=== PATIENT | male | born 1955 | race Caucasian/White ===

== ENCOUNTER 2023-07-30 07:07 | Inpatient (IN) | payer MEDICARE, OTHER ==
[~2023-07-30] VITALS: Ht 177.8 cm; Wt 84.8 kg
[2023-07-30 08:53] LABS: Basophils # (auto) 0 10 ^3/uL (0-0.2); Basophils % (auto) 0.1 % (0.0-2.0); Eosinophils # (auto) 0 10 ^3/uL (0-0.8); Eosinophils % (auto) 0.2 % (0.0-7.0); Hematocrit 45.4 % (41.0-53.0); Hemoglobin 15.5 g/dL (13.5-17.5); Lymphocytes # (auto) 1.1 10 ^3/uL (0.4-5.4); Lymphocytes % (auto) 18.5 % (10.0-50.0); Mean Corpuscular Hemoglobin 30.2 pg (28.0-32.0); Mean Corpuscular Volume 88.9 fL (80.0-100.0); Monocytes # (auto) 0.4 10 ^3/uL (0-1.3); Monocytes % (auto) 6.3 % (0.0-12.0); Neutrophils # (auto) 4.5 10 ^3/uL (1.6-8.6); Neutrophils % (auto) 74.9 % (37.0-80.0); Red Blood Cells 5.11 10^6/uL (4.5-5.90); Red Cell Distribution Width 13.6 % (11.8-14.3)
[2023-07-30 09:09] LABS: Alanine Aminotransferase 42 U/L (7-40); Albumin 4.4 g/dL (3.2-4.8); Alkaline Phosphatase 85 U/L (46-116); Anion Gap 5 (5-15); Aspartate Aminotransferase 28 U/L (13-40); BUN/Creatinine Ratio 13.4 (10.0-20.0); Blood Urea Nitrogen 13 mg/dL (9-23); Calcium 10.7 mg/dL (8.5-10.1); Carbon Dioxide 25 mmol/L (20-30); Chloride 107 mmol/L (98-107); Glucose 108 mg/dL (74-106); Magnesium 2.2 mg/dL (1.6-2.6); Potassium 4.6 mmol/L (3.5-5.1); Sodium 137 mmol/L (136-145)
[2023-07-30 09:10] LABS: Total Protein 8.1 g/dL (5.7-8.2)
[2023-07-30] MEDS: cloNIDine HCL 0.1 MG TAB PO ONE (09:15)
[2023-07-30] MEDS: ASPirin 81 mg TAB PO ONE (09:16)
[2023-07-30] MEDS: SODIUM CHLORIDE 0.9% 1,000 ML IV ONE (09:24)
[2023-07-30] MEDS: IOHEXOL 350 MG/ML 100ML IJ ONE (10:48)
[2023-07-30 11:18] LABS: Urine Bacteria None Seen /hpf (None Seen)
[2023-07-30 11:26] LABS: Urine Blood Negative /uL (Negative); Urine Clarity Turbid (Clear); Urine Color Yellow (Yellow); Urine Mucus FEW (None Seen); Urine Protein, UAD TRACE (Negative); Urine Specific Gravity 1.046 (1.001-1.035); Urine Urobilinogen Normal (Negative); Urine WBC 1 /hpf (0 - 3); Urine pH 6.5 (5.0-9.0)
[2023-07-30] MEDS: cefTRIAXone 1GM/50ML D5W 50 ML IV ONE (15:30)
[2023-07-30] MEDS ORDERED: ONDANSETRON HCL 4 MG/2 ML VIAL IV PRN (16:00)
[2023-07-30] MEDS ORDERED: MORPHINE SULFATE INJ 2 MG/ml SYRG IV PRN (16:00)
[2023-07-30] MEDS ORDERED: NITROGLYCERIN 0.4 MG SL TAB SL PRN (16:00)
[2023-07-30] MEDS ORDERED: DOCUSATE SOD 100 MG CAP PO PRN (16:00)
[2023-07-30] MEDS ORDERED: HYDROcodone-ACET 5/325MG TAB PO PRN (16:00)
[2023-07-30] MEDS ORDERED: hydrALAZINE HCL 20 MG/ML VL IV PRN ×2 (17:45→19:00)
[2023-07-30 18:21] VITALS: PULSE 84; RESP 24; O2SAT 92
[2023-07-30] MEDS: dilTIAZem 25 MG/5 ML VIAL IV ONE (18:42)
[2023-07-30] MEDS ORDERED: LOSA-534 PO (18:48)
[2023-07-30] MEDS ORDERED: GUAI200T6 PO (18:48)
[2023-07-30] MEDS ORDERED: TAMS1CAP25 PO (18:48)
[2023-07-30] MEDS ORDERED: CYCL-614 PO (18:48)
[2023-07-30] MEDS ORDERED: TADA5TAB11 PO (18:48)
[2023-07-30] MEDS ORDERED: MULT-1018 PO (18:48)
[2023-07-30] MEDS ORDERED: OLOD1AER2 IN (18:48)
[2023-07-30] MEDS ORDERED: LIDO5DIS21 TOP (18:48)
[2023-07-30] MEDS ORDERED: BUDE20SU (18:48)
[2023-07-30] MEDS ORDERED: ALBUAER3 IN (18:48)
[2023-07-30] MEDS: LISINOPRIL 20 MG TAB PO ONE (19:04)
[2023-07-30 19:11] VITALS: BP 108/70; PULSE 88; RESP 24; TEMP 97.5; O2SAT 92
[2023-07-30 19:24] VITALS: PULSE 97; RESP 24; RESP 27; O2SAT 94
[2023-07-30] MEDS: SODIUM CHLOR 0.9% PF (SALINE LOCK) 10ML VIAL/SYR IV SCH (22:33)
[2023-07-30] MEDS: LOSARTAN POTASSIUM 50 MG TAB PO SCH (22:34)
[2023-07-30 23:40] VITALS: BP 125/84; PULSE 103; RESP 21; TEMP 98.8; O2SAT 96
[2023-07-30 23:48] VITALS: BP 125/86; PULSE 103; RESP 21; TEMP 98.8; O2SAT 96
[2023-07-30 23:54] VITALS: PULSE 96; RESP 16; O2SAT 97
[2023-07-30] MEDS: IPRATROPIUM BROM 0.5 MG/2.5ML INH SOL NEB PRN (23:56)
[2023-07-30] MEDS: ALBUTEROL SULF 2.5 MG/0.5ML(0.5%) NEB SOLN NEB PRN (23:56)
[2023-07-31] VITALS (11 sets, daily range): BP systolic 96–111; BP diastolic 64–73; PULSE 86–97; RESP 14–21; TEMP 97.8–98.7; O2SAT 93–100
[2023-07-31 05:06] LABS: Basophils # (auto) 0 10 ^3/uL (0-0.2); Basophils % (auto) 0.1 % (0.0-2.0); Eosinophils # (auto) 0 10 ^3/uL (0-0.8); Eosinophils % (auto) 0.1 % (0.0-7.0); Hematocrit 39.8 % (41.0-53.0); Hemoglobin 13.5 g/dL (13.5-17.5); Lymphocytes # (auto) 0.5 10 ^3/uL (0.4-5.4); Lymphocytes % (auto) 5.9 % (10.0-50.0); Mean Corpuscular Hemoglobin 30.4 pg (28.0-32.0); Mean Corpuscular Volume 89.5 fL (80.0-100.0); Monocytes # (auto) 0.5 10 ^3/uL (0-1.3); Monocytes % (auto) 5.4 % (0.0-12.0); Neutrophils # (auto) 7.7 10 ^3/uL (1.6-8.6); Neutrophils % (auto) 88.5 % (37.0-80.0); Red Blood Cells 4.45 10^6/uL (4.5-5.90); Red Cell Distribution Width 13.5 % (11.8-14.3); White Blood Cell 8.7 10^3/uL (4.4-10.8)
[2023-07-31 05:24] LABS: Alanine Aminotransferase 36 U/L (7-40); Albumin 4.2 g/dL (3.2-4.8); Alkaline Phosphatase 68 U/L (46-116); Anion Gap 8 (5-15); Aspartate Aminotransferase 30 U/L (13-40); BUN/Creatinine Ratio 17.3 (10.0-20.0); Blood Urea Nitrogen 19 mg/dL (9-23); Calcium 9.8 mg/dL (8.7-10.4); Carbon Dioxide 23 mmol/L (20-30); Chloride 106 mmol/L (98-107); Glucose 111 mg/dL (74-106); Potassium 4.3 mmol/L (3.5-5.1); Sodium 137 mmol/L (136-145)
[2023-07-31 05:25] LABS: Bilirubin, Total 0.9 mg/dL (0.2-1.0); Total Protein 6.9 g/dL (5.7-8.2)
[2023-07-31] MEDS: ACETAMINOPHEN 325 MG TAB PO PRN (06:19)
[2023-07-31] MEDS: TAMSULOSIN HYDROCHLORIDE 0.4 MG CAP PO SCH (09:08)
[2023-07-31] MEDS: LIDOCAINE 5% TOPICAL PATCH TOP SCH (09:08)
[2023-07-31] MEDS: MULTIPLE VITAMIN TAB PO SCH (09:08)
[2023-07-31] MEDS ORDERED: LISINOPRIL 20 MG TAB PO SCH (10:00)
[2023-07-31] MEDS: BUDESONIDE 32 MCG SCH (10:00)
[2023-07-31] MEDS: OLODATEROL HCL IN SCH (10:00)
[2023-07-31] MEDS ORDERED: TIOTROP PO SCH (12:15)
[2023-07-31] MEDS ORDERED: OLODATEROL PO SCH (12:15)
[2023-07-31] MEDS: TIOTROPIUM IN ONE (14:04)
[2023-07-31] MEDS: OLODATEROL IN ONE (14:04)
[2023-07-31] MEDS: CYCLOBENZAPRINE HCL 10 MG TAB PO PRN (21:03)
[2023-08-01] VITALS (7 sets, daily range): BP systolic 128–144; BP diastolic 90–98; PULSE 81–91; RESP 16–19; TEMP 36.6; O2SAT 94–97
[2023-08-01] MEDS: LOSARTAN POTASSIUM 25 MG TAB PO SCH (09:07)
[2023-08-01] MEDS: OLODATEROL IN SCH (09:07)
[2023-08-01] MEDS: TIOTROPIUM IN SCH (09:07)
[2023-08-01] MEDS ORDERED: LOS25T PO (15:16)
== END 2023-08-01 17:12 | disposition home or self-care (01) | DRG 192 ==
LOC: ER 07:07 → TELE 15:55 → TELE-WESTW 23:23
PROVIDERS: ADMIT Nurse Practitioner Family; ATTEND Internal Medicine
DX: J44.1 Chronic obstructive pulmonary disease with (acute) exacerbation (principal); I16.0 Hypertensive urgency; N40.0 Benign prostatic hyperplasia without lower urinary tract symptoms; E78.5 Hyperlipidemia, unspecified; I71.21 Aneurysm of the ascending aorta, without rupture; G89.4 Chronic pain syndrome; R25.1 Tremor, unspecified; I45.10 Unspecified right bundle-branch block; D89.2 Hypergammaglobulinemia, unspecified; Z85.528 Personal history of other malignant neoplasm of kidney; Z95.3 Presence of xenogenic heart valve; Z82.49 Family history of ischemic heart disease and other diseases of the circulatory system; Z79.899 Other long term (current) drug therapy
CPT/HCPCS: 36415; 71046; 71275; 80053; 81001; 82962; 83735; 84443; 84484; 85025; 85379; 93005; 93306; 94640; G0378